=== PATIENT | male | born 1940 | race Caucasian/White ===

== ENCOUNTER 2018-01-08 06:13 | Day surgery (SDC) | payer OTHER ==
[~2018-01-08] VITALS: Ht 170.2 cm; Wt 73.6 kg
[~2018-01-08 06:13] MED LIST: LORazepam 2 MG/ML VIAL IVP PRN; SODIUM CHLORIDE 0.9% 1,000 ML IV ONE
[2018-01-08] MEDS ORDERED: SODIUM CHLORIDE 0.9% 1,000 ML IV ONE (06:15)
[2018-01-08 06:52] LABS: BASOPHILS % (AUTO) 0.5 % (0.0-2.0); EOSINOPHILS % (AUTO) 4.2 % (1.0-6.0); HEMOGLOBIN 10.7 g/dL (13.5-17.5); LYMPHOCYTES % (AUTO) 22.8 % (22.0-44.0); MEAN CORPUSCULAR HEMOGLOBIN 29.5 pg (26.0-34.0); MEAN CORPUSCULAR HGB CONC 33.6 G/dL (31.0-37.0); MEAN CORPUSCULAR VOLUME 88 fL (80-100); MONOCYTES # (AUTO) 0.7 K/uL (0.1-1.0); MONOCYTES % (AUTO) 15.7 % (2.0-9.0); NEUTROPHILS # (AUTO) 2.4 K/uL (1.8-7.7); NEUTROPHILS % (AUTO) 56.8 % (40.0-70.0); PLATELET COUNT (AUTO) 246 K/uL (150-450); RED BLOOD CELL COUNT(AUTO) 3.64 MIL/uL (4.50-5.90); RED CELL DISTRIBUTION WIDTH 20.2 % (11.5-14.5)
[2018-01-08 07:01] LABS: CALCIUM, TOTAL 8.8 mg/dL (8.8-10.5); CREATININE 1.27 mg/dL (0.60-1.30)
[2018-01-08 07:07] LABS: PROTHROMBIN TIME 10.2 SEC (9.4-11.6)
[2018-01-08 07:08] LABS: ALBUMIN 3.2 g/dL (3.4-5.0); BILIRUBIN,TOTAL 0.4 mg/dL (0.1-1.0); TOTAL PROTEIN, SERUM 7.5 g/dL (6.4-8.2)
[2018-01-08] MEDS ORDERED: IOVERSOL 350 MG/ML 150 ML VIAL ONE (07:10)
[2018-01-08] MEDS ORDERED: SODIUM CHLORIDE 0.9% 0 ML ONE (07:10)
[2018-01-08] MEDS ORDERED: LIDOCAINE/PF 1% 30 ML VIAL ONE (07:48)
[2018-01-08] MEDS ORDERED: METOCLOPRAMIDE HCL 5 MG/ML 2 ML VIAL IVP STA (10:35)
[2018-01-08] MEDS ORDERED: SODIUM CHLORIDE 0.9% 1,000 ML IV SCH (10:43)
[2018-01-08] MEDS ORDERED: HYDROmorphone HCL 2 MG TABLET PO ONE (10:45)
[2018-01-08] MEDS ORDERED: HYDROmorphone 2 MG/ML SYRINGE IVP PRN (10:45)
[2018-01-08] MEDS ORDERED: OxyCODONE HCL/ACETAMINOPHEN 5-325 MG TABLET PO PRN ×2 (10:45)
[2018-01-08] MEDS ORDERED: METOCLOPRAMIDE HCL 5 MG/ML 2 ML VIAL ONE (10:47)
[2018-01-08] MEDS ORDERED: FentaNYL CITRATE-PF 100 MCG/2 ML VIAL IVP ONE (12:00)
[2018-01-08] MEDS ORDERED: PROPOFOL 1% 20 ML VIAL IVP ONE (12:00)
[2018-01-08] MEDS ORDERED: NEOSTIGMINE METHYLSULFATE 1 MG/ML 10 ML VIAL IVP ONE (12:00)
[2018-01-08] MEDS ORDERED: MIDAZOLAM HCL 2 MG/2 ML VIAL IVP ONE (12:00)
[2018-01-08] MEDS ORDERED: LIDOCAINE/PF 2% 5 ML VIAL INJ ONE (12:00)
[2018-01-08] MEDS ORDERED: GLYCOPYRROLATE 0.2 MG/ML VIAL IM ONE (12:00)
[2018-01-08] MEDS ORDERED: HYDROmorphone HCL 2 MG TABLET ONE (12:12)
== END 2018-01-08 13:10 | disposition home or self-care (01) ==
LOC: SURGERY 06:13 → EDSTATUS 07:30 → SURGERY 13:10
PROVIDERS: ATTEND Radiology Diagnostic Radiology
DX: E27.8 Other specified disorders of adrenal gland (principal); I45.19 Other right bundle-branch block; Z87.891 Personal history of nicotine dependence; Z86.73 Personal history of transient ischemic attack (TIA), and cerebral infarction without residual deficits; Z85.118 Personal history of other malignant neoplasm of bronchus and lung; Z98.890 Other specified postprocedural states; Z82.3 Family history of stroke; Z80.3 Family history of malignant neoplasm of breast; Z82.61 Family history of arthritis
CPT/HCPCS: 50593; 77012; 77013; 93005; J2250; J2704; J2765; J3010; J3490; J7030; J7050